=== PATIENT | male | born 1980 | race Asian ===

== ENCOUNTER 2017-11-20 08:34 | Emergency (ER) | payer OTHER ==
[~2017-11-20] VITALS: Ht 167.6 cm; Wt 77.3 kg
[2017-11-20 09:42] LABS: INFLUENZA TYPE A NEGATIVE FOR TYPE A (NEGATIVE); INFLUENZA TYPE B NEGATIVE FOR TYPE B (NEGATIVE)
[2017-11-20 11:10] VITALS: BP 125/72
== END 2017-11-20 11:43 | disposition home or self-care (01) ==
LOC: EMS 08:40
DX: J11.1 Influenza due to unidentified influenza virus with other respiratory manifestations (principal)
CPT/HCPCS: 87804; 99284